=== PATIENT | male | born 1950 | race Caucasian/White ===

== ENCOUNTER 2019-06-15 12:50 | Emergency (ER) | payer MEDICARE ==
[~2019-06-15] VITALS: Ht 182.9 cm; Wt 100.0 kg
[2019-06-15 13:11] VITALS: BP 107/71
[2019-06-15] MEDS ORDERED: IV NORMAL SALINE 1,000ML 1,000 ML IV ONE (13:15)
--- NOTE | 2019-06-15 13:29 | EKG ---
[address] [address] Test Date: 2019-06-15 Test Time: 13:22:51 Pat Name: SURI CR Department: Room: Gender: M Manager Family: : 1950 Requested By: DAY AUSTIN Order Number: [id number] Reading MD: Measurements Intervals [place] Rate: 48 P: 37 NV: 150 QRS: 5 QRSD: 90 T: 24 QT: 484 QTc: 436 Interpretive Statements SINUS BRADYCARDIA OTHERWISE NORMAL ECG RI6.01 No previous ECG available for comparison
--- NOTE | 2019-06-15 13:43 | PHYS DOC ---
Past History Past Medical History: No Pertinent History Past Surgical History: No Surgical History Alcohol Use: None Adult General Chief Complaint Chief Complaint: DIZZY/LIGHT HEADED HPI HPI 68-year-old male presents with dizziness and decreased exercise tolerance. The patient tells me that he walks 10 feet across the room, he starts to get dizzy. He describes this as a lightheaded feeling. If he lies down flat, the symptoms resolved. He sometimes gets the symptoms when he goes from lying to sitting. The patient is on 150 mg of metoprolol daily as well as Cardizem. He states these are for his heart arrhythmia. He is not sure if it's atrial fibrillation. He has also been on an antibiotic for a puncture wound to his left foot. He states that he is now done with the antibiotics. He is not sure what antibiotic it was. His foot has healed. Patient denies any other medication changes. He has been drinking lots of fluid, but had decreased appetite tolerance due to strange taste in his mouth. He denies fever or chills. Has had a cough for the last 2 weeks, with increased frequency last 4 days. He denies chest pain or diaphoresis. Review of Systems Review of Systems Constitutional: Denies fever or chills [] Eyes: Denies change in visual acuity, redness, or eye pain [] HENT: Denies nasal congestion or sore throat [] Respiratory: Cough without shortness of breath [] Cardiovascular: No additional information not addressed in HPI [] GI: Denies abdominal pain, nausea, vomiting, bloody stools or diarrhea [] : Denies dysuria or hematuria [] Musculoskeletal: Denies back pain or joint pain [] Integument: Denies rash or skin lesions [] Neurologic: Dizziness. Denies headache, focal weakness or sensory changes [] Endocrine: Denies polyuria or polydipsia [] All other systems were reviewed and found to be within normal limits, except as documented in this note. Current Medications Current Medications Current Medications Medications (Trade) Dose Ordered Sig/Scot Start Time Stop Time Status Last Admin Dose Admin Sodium Chloride 1,000 ml @ 1,000 mls/hr 1X ONCE 06/15/19 13:15 06/15/19 14:14 UNV 06/15/19 13:32 1,000 MLS/HR Allergies Allergies Allergies Coded Allergies Type Severity Reaction Last Updated Verified Sulfa (Sulfonamide Antibiotics) Allergy Unknown 06/15/19 Yes Physical Exam Physical Exam Constitutional: Well developed, well nourished, no acute distress, non-toxic appearance. [] HENT: Normocephalic, atraumatic, bilateral external ears normal, oropharynx moist, no oral exudates, nose normal. [] Eyes: PERRLA, EOMI, conjunctiva normal, no discharge. [] Neck: Normal range of motion, no tenderness, supple, no stridor. [] Cardiovascular: Heart rate 51, regular rhythm, no murmur [] Lungs & Thorax: Bilateral breath sounds clear to auscultation [] Abdomen: Bowel sounds normal, soft, no tenderness, no masses, no pulsatile masses. [] Skin: Warm, dry, no erythema, no rash. [] Back: No tenderness, no CVA tenderness. [] Extremities: No tenderness, no cyanosis, no clubbing, ROM intact, no edema. [] Neurologic: Alert and oriented X 3, normal motor function, normal sensory function, no focal deficits noted. [] Psychologic: Affect normal, judgement normal, mood normal. [] Current Patient Data Vital Signs Vital Signs Date Time Temp Pulse Resp B/P (MAP) Pulse Ox O2 Delivery O2 Flow Rate FiO2 06/15/19 13:11 98.4 50 16 107/71 (83) 98 Room Air EKG EKG Sinus bradycardia, rate 48, normal axis, no ST elevations or depressions.[] Radiology/Procedures Radiology/Procedures [] Impressions: CHEST PA LATERAL History: Shortness of breath, dizziness. TECHNIQUE: Routine multiplanar sequences are obtained. FINDINGS: No prior study for comparison. Cardiomediastinal silhouette is nonenlarged. No evidence of pneumothorax. No evidence of pleural effusion. No evidence of infiltrate. Bones appear intact. Multilevel degenerative spurring. IMPRESSION: No evidence of consolidating infiltrate. Electronically signed by: Jarad Guzman MD (06/15/2019 2:00 PM) [facility] DICTATED AND SIGNED BY: JARAD GUZMAN MD DATE: 06/15/19 1400 CC: DAY AUSTIN DO; PCP,NO ~ Course & Med Decision Making Course & Med Decision Making Pertinent Labs and Imaging studies reviewed. (See chart for details) Patient's EKG shows a low heart rate of 48-52. He has stayed in this range while in the emergency room. He takes all his medications once a day at the same time. He took them this morning. The patient's labs are unremarkable. Urinalysis is suggestive of UTI. I will treat him with Rocephin in the ED and Keflex at home. The patient didn't tell me that he took full doses of his medications only about 6 hours apart. He took a dose at midnight and then again at 6 AM. This is highly likely the source of his dizziness today. I do wonder if his 150 mg of metoprolol is too much. He will try to only take the 100 mg dose daily and establish with a new primary care physician. The patient recently moved here from out of town. He is stable for discharge at this time. [] Dragon Disclaimer Dragon Disclaimer This electronic medical record was generated, in whole or in part, using a voice recognition dictation system. Departure Departure: Impression: Primary Impression: Dizziness Additional Impressions: Bradycardia UTI (urinary tract infection) Disposition: HOME, SELF-CARE Condition: IMPROVED Referrals: PCP,NO (PCP) Patient Instructions: Bradycardia-Brief, Dizziness, Jily-ra-Mtqy, Urinary Tract Infection, Bgae-rv-Hoxy Scripts Cephalexin (KEFLEX) 500 Mg Capsule 1 CAP PO TID for UTI for 7 Days, #21 CAP 0 Refills Prov: DAY AUSTIN DO 06/15/19 Problem Qualifiers Additional Impressions: UTI (urinary tract infection) Urinary tract infection type: acute cystitis Hematuria presence: with hematuria Qualified Codes: N30.01 - Acute cystitis with hematuria DAY AUSTIN DO Jun 15, 2019 13:43
[2019-06-15 14:00] LABS: CALCIUM 8.3 mg/dL (8.5-10.1); GFR 73.9; POTASSIUM 3.6 mmol/L (3.5-5.1)
--- NOTE | 2019-06-15 14:03 | RAD ---
CHEST PA LATERAL History: Shortness of breath, dizziness. TECHNIQUE: Routine multiplanar sequences are obtained. FINDINGS: No prior study for comparison. Cardiomediastinal silhouette is nonenlarged. No evidence of pneumothorax. No evidence of pleural effusion. No evidence of infiltrate. Bones appear intact. Multilevel degenerative spurring. IMPRESSION: No evidence of consolidating infiltrate. Electronically signed by: Jarad Guzman MD (06/15/2019 2:00 PM) [facility]
[2019-06-15 14:07] LABS: ALBUMIN 3.2 g/dL (3.4-5.0); ALBUMIN/GLOBULIN RATIO 0.7 (1.0-1.7); TOTAL BILIRUBIN 2.1 mg/dL (0.2-1.0); TOTAL PROTEIN 7.9 g/dL (6.4-8.2)
[2019-06-15 14:16] LABS: BASO % 0 % (0-3); EOS % 0 % (0-3); HEMATOCRIT 30.3 % (39.0-53.0); HEMOGLOBIN 10.2 g/dL (13.0-17.5); LYMPH # 1.6 x10^3/uL (1.0-4.8); LYMPH % 39 % (24-48); MEAN CORPUSCULAR HEMOGLOBIN 36 pg (25-35); MEAN CORPUSCULAR HGB CONC 34 g/dL (31-37); MEAN CORPUSCULAR VOLUME 109 fL (79-100); MONO # 0.4 x10^3/uL (0.0-1.1); MONO % 11 % (0-9); NEUT % 50 % (31-73); PLATELET COUNT 222 x10^3/uL (140-400); RED BLOOD COUNT 2.79 x10^6/uL (4.30-5.70); RED CELL DISTRIBUTION WIDTH 23.5 % (11.5-14.5)
[2019-06-15 15:27] LABS: BILIRUBIN,URINE LARGE (NEG); CLARITY,URINE HAZY; COLOR,URINE AMBER; GLUCOSE,URINE NEG (NEG)
[2019-06-15 15:28] LABS: AMORPHOUS SEDIMENT,UR PRESENT /HPF; BACTERIA,URINE FEW /HPF (0-FEW); HYALINE CASTS, URINE FEW /HPF; NITRITE,URINE POS (NEG); RBC,URINE RARE /HPF (0-2); SQUAMOUS EPITHELIAL CELL,UR OCC /LPF; UROBILINOGEN,URINE >=8.0 mg/dL (0.2 mg/dL); WBC,URINE OCC /HPF (0-4)
[2019-06-15 15:32] LABS: % ATYL 3 % (0-0); % BANDS 1 % (0-9); % EOS 1 % (0-5); % LYMPHS 47 % (24-48); % MONOS 8 % (0-10); % SEGS 40 % (35-66); PLT ESTIMATE ADEQUATE (ADEQUATE)
[2019-06-15 15:33] LABS: ANISOCYTOSIS MOD
[2019-06-15] MEDS ORDERED: CEPH-264 PO (16:00)
[2019-06-15] MEDS ORDERED: IV NORMAL SALINE 50ML 50 ML ONE (16:04)
[2019-06-15] MEDS ORDERED: cefTRIAXone SODIUM 1 GM VIAL ONE (16:04)
== END 2019-06-15 16:26 | disposition home or self-care (01) ==
LOC: ER 12:50
DX: R42 Dizziness and giddiness (principal); R00.1 Bradycardia, unspecified; N39.0 Urinary tract infection, site not specified; Z88.2 Allergy status to sulfonamides
CPT/HCPCS: 36415; 71046; 80053; 81001; 84484; 85007; 85025; 87086; 93005; 96361; 96365; 99285; J0696; J7030

== ENCOUNTER → 2019-07-28 | Outpatient (CLI) | payer MEDICARE ==
[~2019-07-28] MED LIST: CEPH-264 PO
[2019-07-28 16:18] LABS: BASO % 1 % (0-3); EOS # 0.1 x10^3/uL (0.0-0.7); EOS % 1 % (0-3); HEMATOCRIT 34.9 % (39.0-53.0); HEMOGLOBIN 11.9 g/dL (13.0-17.5); LYMPH # 2.3 x10^3/uL (1.0-4.8); LYMPH % 48 % (24-48); MEAN CORPUSCULAR HEMOGLOBIN 40 pg (25-35); MEAN CORPUSCULAR HGB CONC 34 g/dL (31-37); MEAN CORPUSCULAR VOLUME 118 fL (79-100); MONO # 0.2 x10^3/uL (0.0-1.1); MONO % 5 % (0-9); NEUT # 2.2 x10^3uL (1.8-7.7); NEUT % 45 % (31-73); PLATELET COUNT 260 x10^3/uL (140-400); RED BLOOD COUNT 2.95 x10^6/uL (4.30-5.70); WHITE BLOOD COUNT 4.8 x10^3/uL (4.0-11.0)
[2019-07-28 16:33] LABS: BACTERIA,URINE 0 /HPF (0-FEW); BILIRUBIN,URINE NEG (NEG); CLARITY,URINE HAZY; COLOR,URINE YELLOW; GLUCOSE,URINE NEG (NEG); HYALINE CASTS, URINE OCC /HPF; NITRITE,URINE NEG (NEG); RBC,URINE 0 /HPF (0-2); SQUAMOUS EPITHELIAL CELL,UR OCC /LPF; WBC,URINE OCC /HPF (0-4)
[2019-07-28 16:34] LABS: ALBUMIN 3.4 g/dL (3.4-5.0); ALBUMIN/GLOBULIN RATIO 0.7 (1.0-1.7); CALCIUM 8.5 mg/dL (8.5-10.1); CREATININE 0.8 mg/dL (0.7-1.3); GFR 95.6; POTASSIUM 4.3 mmol/L (3.5-5.1)
[2019-07-28 21:46] LABS: PLT ESTIMATE ADEQUATE (ADEQUATE)
[2019-07-28 21:47] LABS: ANISOCYTOSIS SLIGHT
[2019-07-29 06:07] LABS: HEMOGLOBIN A1C 4.9 % (4.8-5.6)
[2019-07-29 17:40] LABS: FREE T4 0.99 ng/dL (0.76-1.46); THYROID STIM HORMONE (TSH) 0.75 uIU/mL (0.358-3.740)
== END ==
LOC: LAB 15:42
PROVIDERS: ATTEND Physician Assistant Medical
DX: I10 Essential (primary) hypertension (principal); R60.9 Edema, unspecified; Z79.899 Other long term (current) drug therapy
CPT/HCPCS: 36415; 80053; 80061; 81001; 83036; 83880; 84439; 84443; 84481; 85025

== ENCOUNTER → 2020-01-19 | Outpatient (CLI) | payer MEDICARE ==
--- NOTE | 2020-01-19 17:31 | RAD ---
EXAM: Left knee, 2 views. HISTORY: Pain after fall. COMPARISON: None. FINDINGS: 2 views of the left knee are obtained. There is no fracture, dislocation or subluxation. There is minimal enthesopathy along the superior patella. There is no joint effusion. IMPRESSION: No acute osseous finding. Electronically signed by: Pia Degroot MD (01/19/2020 5:29 PM) [id number]
== END | disposition home or self-care (01) ==
LOC: RAD 16:02
PROVIDERS: ATTEND Internal Medicine Cardiovascular Disease
DX: M77.8 Other enthesopathies, not elsewhere classified (principal); M25.562 Pain in left knee
CPT/HCPCS: 73560

== ENCOUNTER 2020-12-05 09:27 | Inpatient (IN) | payer MEDICARE ==
[~2020-12-05] VITALS: Ht 182.9 cm; Wt 97.2 kg
[2020-12-05 11:25] LABS: BASO % 1 % (0-3); EOS % 0 % (0-3); HEMATOCRIT 43.6 % (39.0-53.0); HEMOGLOBIN 14.9 g/dL (13.0-17.5); LYMPH # 0.7 x10^3/uL (1.0-4.8); LYMPH % 47 % (24-48); MEAN CORPUSCULAR HEMOGLOBIN 34 pg (25-35); MEAN CORPUSCULAR HGB CONC 34 g/dL (31-37); MEAN CORPUSCULAR VOLUME 99 fL (79-100); MONO # 0.2 x10^3/uL (0.0-1.1); MONO % 14 % (0-9); NEUT # 0.6 x10^3uL (1.8-7.7); NEUT % 39 % (31-73); PLATELET COUNT 116 x10^3/uL (140-400)
[2020-12-05 11:26] LABS: WHITE BLOOD COUNT 1.5 x10^3/uL (4.0-11.0)
[2020-12-05 11:29] LABS: CALCIUM 7.9 mg/dL (8.5-10.1); CREATININE 1.2 mg/dL (0.7-1.3); GFR 59.7; POTASSIUM 4.4 mmol/L (3.5-5.1)
[2020-12-05 11:35] LABS: ALBUMIN 3.5 g/dL (3.4-5.0); TOTAL PROTEIN 6.9 g/dL (6.4-8.2)
--- NOTE | 2020-12-05 11:39 | EKG ---
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
--- NOTE | 2020-12-05 11:48 | RAD ---
XR CHEST 1V History: Reason: COUGH / Spl. Instructions: / History: Comparison: June 15, 2019 Findings: Mild scattered nodular opacities bilaterally most prominent within the left mid and lower lung, sever al are similar compared to prior. No consolidation or pleural effusion. No pneumothorax. Normal heart size. Chronic right-sided rib fractures. Impression: 1. No acute cardiopulmonary process. 2. Scattered nodular opacities bilaterally most prominent within the left mid and lower lung, severa l are similar compared to prior. Findings may relate to calcified nodules although indeterminate. Rec ommend follow-up CT to further evaluate as clinically warranted. Electronically signed by: Vasquez Bobo DO (12/05/2020 11:46 AM) [id number]
[2020-12-05 11:53] LABS: % LYMPHS 57 % (24-48); % METAS 2 % (0-0); % MONOS 8 % (0-10); % SEGS 33 % (35-66); PLT ESTIMATE DECREASED (ADEQUATE)
[2020-12-05] MEDS ORDERED: IV RINGERS SOLUTION,LACTATED 1,000 ML IV ONE (12:30)
--- NOTE | 2020-12-05 12:36 | PHYS DOC ---
Past History Past Medical History: No Pertinent History Past Surgical History: No Surgical History Alcohol Use: None General Adult EDM: Chief Complaint: DIZZY/LIGHT HEADED HPI: HPI: Patient is a 69 year old male without pertinent past medical history who presents with 3 days of increasing lightheadedness, loss of taste/smell, and diarrhea. He is not vaccinated for Covid. He does not know of any Covid contacts. His lightheadedness is solely orthostatic. It is worse when he sits up or stands up but goes away completely when he rests. He denies any vertigo. No headache. He has no cough or shortness of breath. He does not feel that he is safe to return home in his current state Review of Systems: Review of Systems: Constitutional: Denies fever or chills Eyes: Denies change in visual acuity HENT: Loss of taste/smell. Denies nasal congestion or sore throat Respiratory: Denies cough or shortness of breath Cardiovascular: Denies chest pain or edema GI: Diarrhea. Denies abdominal pain, nausea, vomiting, bloody stools or diarrhea : Denies dysuria Musculoskeletal: Denies back pain or joint pain Integument: Denies rash Neurologic: Lightheadedness. Denies headache, focal weakness or sensory changes Endocrine: Denies polyuria or polydipsia Lymphatic: Denies swollen glands Psychiatric: Denies depression or anxiety Allergies: Allergies: Allergies Coded Allergies Type Severity Reaction Last Updated Verified Sulfa (Sulfonamide Antibiotics) Allergy Unknown 06/15/19 Yes Physical Exam: PE: Constitutional: Well developed, well nourished, no acute distress, non-toxic appearance. [] HENT: Normocephalic, atraumatic, bilateral external ears normal, oropharynx moist, no oral exudates, nose normal. [] Eyes: PERRLA, EOMI, conjunctiva normal, no discharge. [] Neck: Normal range of motion, no tenderness, supple, no stridor. [] Cardiovascular:Heart rate regular rhythm, no murmur [] Lungs & Thorax: Bilateral breath sounds clear to auscultation [] Abdomen: Bowel sounds normal, soft, no tenderness, no masses, no pulsatile masses. [] Skin: Warm, dry, no erythema, no rash. [] Back: No tenderness, no CVA tenderness. [] Extremities: No tenderness, no cyanosis, no clubbing, ROM intact, no edema. [] Neurologic: Alert and oriented X 3, normal motor function, normal sensory function, no focal deficits noted. Appears slightly unsteady when walking. [] Psychologic: Affect normal, judgement normal, mood normal. [] Current Patient Data: Labs: Laboratory Tests Test 12/05/20 11:03 White Blood Count 1.5 x10^3/uL (4.0-11.0) *L Red Blood Count 4.40 x10^6/uL (4.30-5.70) Hemoglobin 14.9 g/dL (13.0-17.5) Hematocrit 43.6 % (39.0-53.0) Mean Corpuscular Volume 99 fL (79-100) Mean Corpuscular Hemoglobin 34 pg (25-35) Mean Corpuscular Hemoglobin Concent 34 g/dL (31-37) Red Cell Distribution Width 18.0 % (11.5-14.5) H Platelet Count 116 x10^3/uL (140-400) L Neutrophils (%) (Auto) 39 % (31-73) Lymphocytes (%) (Auto) 47 % (24-48) Monocytes (%) (Auto) 14 % (0-9) H Eosinophils (%) (Auto) 0 % (0-3) Basophils (%) (Auto) 1 % (0-3) Neutrophils # (Auto) 0.6 x10^3uL (1.8-7.7) L Lymphocytes # (Auto) 0.7 x10^3/uL (1.0-4.8) L Monocytes # (Auto) 0.2 x10^3/uL (0.0-1.1) Eosinophils # (Auto) 0.0 x10^3/uL (0.0-0.7) Basophils # (Auto) 0.0 x10^3/uL (0.0-0.2) Segmented Neutrophils % 33 % (35-66) L Lymphocytes % 57 % (24-48) H Monocytes % 8 % (0-10) Metamyelocytes % 2 % (0-0) H Platelet Estimate Decreased (ADEQUATE) Sodium Level 137 mmol/L (136-145) Potassium Level 4.4 mmol/L (3.5-5.1) Chloride Level 100 mmol/L (98-107) Carbon Dioxide Level 28 mmol/L (21-32) Anion Gap 9 (6-14) Blood Urea Nitrogen 21 mg/dL (8-26) Creatinine 1.2 mg/dL (0.7-1.3) Estimated GFR (Cockcroft-Gault) 59.7 BUN/Creatinine Ratio 18 (6-20) Glucose Level 122 mg/dL (70-99) H Calcium Level 7.9 mg/dL (8.5-10.1) L Total Bilirubin 1.0 mg/dL (0.2-1.0) Aspartate Amino Transferase (AST) 31 U/L (15-37) Alanine Aminotransferase (ALT) 27 U/L (16-63) Alkaline Phosphatase 75 U/L (46-116) Total Protein 6.9 g/dL (6.4-8.2) Albumin 3.5 g/dL (3.4-5.0) Albumin/Globulin Ratio 1.0 (1.0-1.7) Vital Signs: Vital Signs Date Time Temp Pulse Resp B/P (MAP) Pulse Ox O2 Delivery O2 Flow Rate FiO2 12/05/20 10:32 110 18 101/70 (80) 99 Room Air 12/05/20 09:58 98.1 EKG: EKG: [] Sinus rhythm. Left axis deviation. Prolonged QT 492. No acute ischemic changes. Radiology/Procedures: Radiology/Procedures: CXR without acute process. [] Heart Score: C/O Chest Pain: N/A Risk Factors: Risk Factors: DM, Current or recent (<one month) smoker, HTN, HLP, family history of CAD, obesity. Risk Scores: Score 0 - 3: 2.5% MACE over next 6 weeks - Discharge Home Score 4 - 6: 20.3% MACE over next 6 weeks - Admit for Clinical Observation Score 7 - 10: 72.7% MACE over next 6 weeks - Early Invasive Strategies Course & Med Decision Making: Course & Med Decision Making Pertinent Labs and Imaging studies reviewed. (See chart for details) Patient is a 69-year-old gentleman without pertinent past medical history who presents with 3 days of orthostatic dizziness, loss of taste/smell, and diarrhea. His orthostatic lightheadedness is limiting his safety at home. Does not feel that he is able to ambulate safely independently. On arrival is afebrile, hemodynamically stable. EKG without acute ischemic changes or evidence of arrhythmia. He has not been vaccinated for Covid, and given his loss of taste/smell was made PUI. He does not know of any Covid contacts. His CMP was largely unremarkable, his CBC showed a leukopenia and thrombocytopenia. Concern for viremia. Given his leukopenia I did discuss HIV risk factors and could not identify any. He does not appear to be safe to return home at this time. Will be admitted to our hospitalist. IV fluids given for dehydration. [id number] Dragon Disclaimer: Sharron Disclaimer: This electronic medical record was generated, in whole or in part, using a voice recognition dictation system. Departure Departure: Impression: Primary Impression: Dehydration Disposition: ADMITTED INPATIENT Admitting Physician: Mack Swift Condition: STABLE Referrals: SAMANTHA JAUREGUI (PCP) KEE RANDHAWA MD Dec 05, 2020 12:36
--- NOTE | 2020-12-05 15:02 | HP ---
ADMIT DATE: 12/05/2020 ATTENDING PHYSICIAN: Dr. Swift. CHIEF COMPLAINT: Dizziness. HISTORY OF PRESENT ILLNESS: The patient is a 69-year-old gentleman with viremia. He has had a 3-day history of increasing lightheadedness, loss of taste, smell and diarrhea. He had some gastrointestinal losses. He has dry membranes. Clinically, he appears dehydrated. His lightheadedness is orthostatic. It gets worse when he rises. He is not on any blood pressure meds or diuretics. In the ED, the workup showed a normal chest x-ray. He has not had his COVID vaccine. His white count is diminished of the leukopenia. PAST MEDICAL HISTORY: Not remarkable for any hypertension or heart disease. MEDICATIONS: He is not on any prescription meds. ALLERGIES: HE HAS ALLERGIES TO SULFA DRUGS, WHICH CAUSES RASH. SOCIAL HISTORY: He is a nonsmoker, nondrinker. FAMILY HISTORY: Mom of complications of heart disease. Father of emphysema at age 68. He is retired. He is independent. He has not had any recent travel. However, daughter and daughter's boyfriend has recently been diagnosed with COVID infection. REVIEW OF SYSTEMS: Significant for the diarrhea, loose stools. No fevers, chills, chest pain . All other systems reviewed and noted to be negative. PHYSICAL EXAMINATION: GENERAL: When I saw him, this is a pleasant middle-aged gentleman. INITIAL VITAL SIGNS: Showed a blood pressure of 144/85, pulse is 96 and regular. He is afebrile. Oxygen saturation 99% on room air. HEENT: Head is without trauma. Pupils are reactive. Sclerae nonicteric. Oropharynx is clear. NECK: Supple, no bruits identified. LUNGS: Clear to auscultation. CARDIOVASCULAR: Showed regular heart tones. No gallops. ABDOMEN: Soft. EXTREMITIES: Without edema. NEUROLOGIC: Focally intact. Speech is fluent. SKIN: Warm and dry. Mucous membranes are dry. PERTINENT LABORATORY STUDIES: Hemoglobin is 14.9 g/dL, white count 1500. Electrolytes, creatinine and BUN normal. Nonfasting blood sugar 122. Chest x-ray showed no acute opacities, some scattered nodular opacities in the bases, which may be old nodules. ASSESSMENT: 1. This 69-year-old gentleman has viremia. 2. Dehydration. 3. Leukopenia. 4. COVID-19 person under investigation. PLAN: 1. Admit to the inpatient unit. 2. IV hydration. 3. Await coronavirus swab. 4. Diet as tolerated. 5. No home meds at this time, I do not believe antibiotics are indicated. ELIZABETH/ANGELIQUE/CATHERINE DR: ELIZABETH/kali TID: [id number] CC: CASEY AHN
[2020-12-05 18:09] VITALS: BP 125/94
[2020-12-05 23:05] VITALS: BP 118/95
[2020-12-06 05:27] VITALS: BP 123/84
[2020-12-06 10:33] LABS: BASO % 1 % (0-3); EOS % 0 % (0-3); HEMATOCRIT 41.6 % (39.0-53.0); HEMOGLOBIN 14.2 g/dL (13.0-17.5); LYMPH # 0.8 x10^3/uL (1.0-4.8); LYMPH % 56 % (24-48); MEAN CORPUSCULAR HEMOGLOBIN 34 pg (25-35); MEAN CORPUSCULAR HGB CONC 34 g/dL (31-37); MEAN CORPUSCULAR VOLUME 99 fL (79-100); MONO # 0.2 x10^3/uL (0.0-1.1); MONO % 14 % (0-9); NEUT # 0.4 x10^3uL (1.8-7.7); NEUT % 30 % (31-73); PLATELET COUNT 83 x10^3/uL (140-400); RED BLOOD COUNT 4.22 x10^6/uL (4.30-5.70); RED CELL DISTRIBUTION WIDTH 17.4 % (11.5-14.5)
[2020-12-06 10:34] LABS: WHITE BLOOD COUNT 1.3 x10^3/uL (4.0-11.0)
[2020-12-06] MEDS: ENOXAPARIN 30 MG/0.3 ML SYRINGE. SQ SCH (11:00)
[2020-12-06 12:04] VITALS: BP 130/83
[2020-12-06 15:40] VITALS: BP 125/95
[2020-12-06] MEDS: BENZONATATE 100 MG CAPSULE. PO SCH ×2 (19:00→20:48)
[2020-12-06 21:00] VITALS: BP 119/91
--- NOTE | 2020-12-06 21:28 | PN ---
DATE: 12/06/2020 ATTENDING PHYSICIAN: Dr. Swift. SUBJECTIVE: Still weak. He has no new complaints. OBJECTIVE FINDINGS: VITAL SIGNS: Blood pressure this morning is 118/95, pulse is 100 and regular, temperature 99.6 degrees Fahrenheit, oxygen sat 95% on room air. HEENT: Head is without trauma. Pupils are reactive. Sclerae nonicteric. Oropharynx is clear. NECK: Supple, no bruits. LUNGS: Good breath sounds. No rhonchi. CARDIOVASCULAR: Showed regular heart tones. No gallops. ABDOMEN: Soft. EXTREMITIES: Without edema. NEUROLOGIC FINDINGS: Focally intact. LABORATORY DATA: Serology was indeed positive for coronavirus. His white count on admission was 1500. ASSESSMENT: 1. A 69-year-old gentleman with COVID-19 coronavirus viremia. No respiratory symptoms at this time. 2. Mild dehydration. 3. Leukopenia. PLAN: 1. Follow up CBC. 2. Continue IV hydration. 3. Empiric Lovenox. 4. I do not see any necessity for steroids at this time. MARYAN DR: Marya TID: [id number] CC: CASEY AHN
[2020-12-07 06:10] VITALS: BP 99/71
[2020-12-07 08:39] LABS: BASO % 0 % (0-3); EOS % 0 % (0-3); HEMATOCRIT 45.8 % (39.0-53.0); HEMOGLOBIN 15.7 g/dL (13.0-17.5); LYMPH # 1.1 x10^3/uL (1.0-4.8); LYMPH % 62 % (24-48); MEAN CORPUSCULAR HEMOGLOBIN 34 pg (25-35); MEAN CORPUSCULAR HGB CONC 34 g/dL (31-37); MEAN CORPUSCULAR VOLUME 98 fL (79-100); MONO # 0.2 x10^3/uL (0.0-1.1); MONO % 13 % (0-9); NEUT # 0.4 x10^3uL (1.8-7.7); NEUT % 25 % (31-73); PLATELET COUNT 74 x10^3/uL (140-400); RED BLOOD COUNT 4.67 x10^6/uL (4.30-5.70); RED CELL DISTRIBUTION WIDTH 17.5 % (11.5-14.5)
[2020-12-07 08:51] LABS: ALBUMIN 3.2 g/dL (3.4-5.0); ALBUMIN/GLOBULIN RATIO 0.8 (1.0-1.7); CALCIUM 7.6 mg/dL (8.5-10.1); CREATININE 1.1 mg/dL (0.7-1.3); POTASSIUM 3.8 mmol/L (3.5-5.1)
[2020-12-07 08:53] LABS: WHITE BLOOD COUNT 1.8 x10^3/uL (4.0-11.0)
[2020-12-07] MEDS: BENZONATATE 100 MG CAPSULE. PO SCH ×3 (10:01→19:15)
[2020-12-07] MEDS: ENOXAPARIN 30 MG/0.3 ML SYRINGE. SQ SCH (10:12)
[2020-12-07 10:31] VITALS: BP 116/73
[2020-12-07] MEDS ORDERED: DEXAMETHASONE SOD PHOS 10 MG/ML VIAL. IV ONE (14:15)
[2020-12-07] MEDS ORDERED: DEXTROSE 50% 25 GM / 50ML DISP.SYRIN. IV PRN (14:15)
--- NOTE | 2020-12-07 14:56 | EKG ---
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
[2020-12-07] MEDS: IV NORMAL SALINE 1,000ML 1,000 ML IV SCH (15:43)
[2020-12-07 16:20] VITALS: BP 134/98
[2020-12-07] MEDS ORDERED: METOPROLOL TART IMMED RELEASE 25 MG TABLET. PO ONE (16:45)
[2020-12-07] MEDS ORDERED: DIGOXIN IV 500 MCG/2 ML AMPUL. IV ONE (16:45)
[2020-12-07] MEDS: ACETAMINOPHEN 325 MG TABLET PO PRN (16:50)
[2020-12-07] MEDS: INSULIN LISPRO 300 UNITS/3 ML VIAL. SQ SCH (17:00)
[2020-12-07] MEDS: METOPROLOL TART IMMED RELEASE 25 MG TABLET. PO SCH ×4 (19:14→20:04)
[2020-12-07 19:30] VITALS: BP 128/80
[2020-12-07 22:00] VITALS: BP 131/76
--- NOTE | 2020-12-07 23:26 | PN ---
DATE: 12/07/2020 SUBJECTIVE: The patient is a 69-year-old male patient who was admitted with a 3-day history of increasing lightheadedness, loss of taste, smell and diarrhea. He has dry membranes. Clinically, he appears to be dehydrated. He has also orthostatic hypotension that gets worse when he stands up. He was found to be positive for coronavirus; however, he has leukopenia and thrombocytopenia. In fact, his white cell count is slightly up today at 1800. However, the platelet count is trending down to 74,000. He continued to complain of loss of taste and smell and the nursing staff stated hat he still continued to have loose bowel movement. Denied any chest pain, shortness of breath, cough, phlegm or hemoptysis. PHYSICAL EXAMINATION: GENERAL: When I examined him today, he looked well and was clearly in no apparent respiratory distress. No pallor, jaundice, cyanosis or thyromegaly. No jugular venous distention. No lower limb edema. VITAL SIGNS: Her heart rate was irregularly irregular and varies between 80-130, his blood pressure is 116/73, temperature was 96.6, respiratory rate 20, and oxygen saturation was 96% on room air. HEAD, EYES, EARS, NOSE AND THROAT: Showed he is normocephalic, atraumatic. NECK: Supple. HEART: Showed normal first and second heart sounds, no gallop or murmur. CHEST: Clear to auscultation, no crepitation or rhonchi. ABDOMEN: Distended, soft, nontender. NEUROLOGIC: He is somewhat slow to respond, but otherwise all his cranial nerves intact. He moves extremities without difficulty. His intake was 850, no output was recorded. LABORATORY DATA: As of this morning, his white cell count was 1800, hemoglobin 15.7, hematocrit 45, MCV 98 and platelet count of 74,000 with a manual differential showed 25% polymorphs, 62% lymphocytes and 13% monocytes. His chemistry showed a serum sodium 136, potassium 3.8, chloride 100, bicarbonate 29, anion gap of 7, BUN of 12, creatinine 1.1. Estimated GFR was 66 mL per minute. His glucose 116, calcium was 7.6. Total bilirubin, AST, ALT, alkaline phosphatase were normal. Total protein 7, albumin 3.2. ASSESSMENT: 1. COVID-19 infection. 2. Dehydration and mild dizziness. 3. Leukopenia. 4. Thrombocytopenia. 5. Lymphocytosis. PLAN: The plan is to start him on IV fluids. I am little bit concerned about his thrombocytopenia and therefore, I will discontinue the Lovenox, start him on SCDs for DVT prophylaxis and start him also on dexamethasone. His blood sugar was slightly high. We will do also Accu-Cheks before meals and bedtime. CORINA DR: Evelyn TID: [id number]
[2020-12-08] MEDS: IV NORMAL SALINE 1,000ML 1,000 ML IV SCH ×3 (00:15→20:15)
[2020-12-08 07:00] VITALS: BP 131/76
[2020-12-08 07:30] LABS: ALBUMIN 2.8 g/dL (3.4-5.0); ALBUMIN/GLOBULIN RATIO 0.8 (1.0-1.7); C REACTIVE PROTEIN 10.7 mg/L (0-3.3); CALCIUM 7.7 mg/dL (8.5-10.1); CREATININE 0.9 mg/dL (0.7-1.3); GFR 83.2; POTASSIUM 4.2 mmol/L (3.5-5.1); TOTAL BILIRUBIN 0.7 mg/dL (0.2-1.0); TOTAL PROTEIN 6.4 g/dL (6.4-8.2)
[2020-12-08] MEDS: INSULIN LISPRO 300 UNITS/3 ML VIAL. SQ SCH ×3 (08:00→17:00)
--- NOTE | 2020-12-08 08:36 | PDOC2 ---
CARDIAC CONSULT DATE OF CONSULT DOS: DATE: 12/08/20 TIME: 08:26 REASON FOR CONSULT Reason for Consult irregular heart beat REFERRING PHYSICIAN Referring Physician Dr. Krueger SOURCE Source: Chart review, Patient HPI History of Present Illness This is a 69 yo male who presented secondary to dizziness, loss of taste/smell, and diarrhea. Was noted to be COVID positive. Was noted in AFIB with RVR, which prompted this consult. Was started on metoprolol for rate control. No chest pain, palpitations. Has remains on RA. PAST MEDICAL HISTORY Cardiovascular: No pertinent hx Pulmonary: No pertinent hx GI: No pertinent hx Heme/Onc: No pertinent hx PAST SURGICAL HISTORY Past Surgical History: No pertinent history FAMILY HISTORY Family History: Heart Disease SOCIAL HISTORY Smoke: No ALCOHOL: none Drugs: None Lives: Alone CURRENT MEDICATIONS Current Medications Current Medications Lactated Ringer's 1,000 ml @ 75 mls/hr 1X ONCE IV Last administered on 12/05/20at 13:24; Start 12/05/20 at 12:30; Stop 12/06/20 at 01:49; Status DC Enoxaparin Sodium (Lovenox 30mg Syringe) 30 mg Q24H SQ Last administered on 12/07/20at 10:12; Start 12/06/20 at 11:00; Stop 12/07/20 at 14:10; Status DC Benzonatate (Tessalon Perle) 100 mg [id number] PO Last administered on 12/07/20at 19:15; Start 12/06/20 at 19:00 Sodium Chloride 1,000 ml @ 100 mls/hr Q10H IV Last administered on 12/08/20at 00:15; Start 12/07/20 at 14:15 Dexamethasone Sodium Phosphate (Decadron) 10 mg 1X ONCE IV Last administered on 12/07/20at 15:42; Start 12/07/20 at 14:15; Stop 12/07/20 at 14:17; Status DC Dexamethasone Sodium Phosphate (Decadron) 6 mg DAILY IVP ; Start 12/08/20 at 09:00 Insulin Human Lispro (HumaLOG) 0-5 UNITS TIDWMEALS SQ ; Start 12/07/20 at 17:00 Dextrose (Dextrose 50%-Water Syringe) 12.5 gm PRN Q15MIN PRN IV SEE COMMENTS; Start 12/07/20 at 14:15 Acetaminophen (Tylenol) 325 mg PRN Q6HRS PRN PO MILD PAIN / TEMP > 100.3'F Last administered on 12/07/20at 16:50; Start 12/07/20 at 16:45 Digoxin (Lanoxin) 500 mcg 1X ONCE IV Last administered on 12/07/20at 16:52; Start 12/07/20 at 16:45; Stop 12/07/20 at 16:46; Status DC Metoprolol Tartrate (Lopressor) 25 mg 1X ONCE PO Last administered on 12/07/20at 16:50; Start 12/07/20 at 16:45; Stop 12/07/20 at 16:46; Status DC Metoprolol Tartrate (Lopressor) 25 mg BID PO Last administered on 12/07/20at 20:04; Start 12/07/20 at 21:00 Active Scripts Active Keflex (Cephalexin) 500 Mg Capsule 1 Cap PO TID 7 Days ALLERGIES Allergies: Coded Allergies: Sulfa (Sulfonamide Antibiotics) (Verified Allergy, Unknown, 06/15/19) ROS Review of Systems 14 point ROS conducted with pertinent positives noted above in HPI PHYSICAL EXAM General: Alert, Oriented X3, Cooperative, No acute distress HEENT: Atraumatic Lungs: Other (RA) Heart: Other (tele AFIB, rate controlled ) Extremities: No edema Skin: No breakdown Neuro: Normal speech Psych/Mental Status: Mental status NL, Mood NL MUSCULOSKELETAL: Osteoarthritic changes both hands VITALS Vital Signs Vital Signs Date Time Temp Pulse Resp B/P (MAP) Pulse Ox O2 Delivery O2 Flow Rate FiO2 12/08/20 07:00 98.4 85 18 131/76 (94) 95 Room Air LABS LABS Laboratory Tests Test 12/06/20 10:20 12/07/20 07:59 12/07/20 08:27 12/07/20 17:19 White Blood Count 1.3 x10^3/uL (4.0-11.0) 1.8 x10^3/uL (4.0-11.0) Red Blood Count 4.22 x10^6/uL (4.30-5.70) 4.67 x10^6/uL (4.30-5.70) Hemoglobin 14.2 g/dL (13.0-17.5) 15.7 g/dL (13.0-17.5) Hematocrit 41.6 % (39.0-53.0) 45.8 % (39.0-53.0) Mean Corpuscular Volume 99 fL (79-100) 98 fL (79-100) Mean Corpuscular Hemoglobin 34 pg (25-35) 34 pg (25-35) Mean Corpuscular Hemoglobin Concent 34 g/dL (31-37) 34 g/dL (31-37) Red Cell Distribution Width 17.4 % (11.5-14.5) 17.5 % (11.5-14.5) Platelet Count 83 x10^3/uL (140-400) 74 x10^3/uL (140-400) Neutrophils (%) (Auto) 30 % (31-73) 25 % (31-73) Lymphocytes (%) (Auto) 56 % (24-48) 62 % (24-48) Monocytes (%) (Auto) 14 % (0-9) 13 % (0-9) Eosinophils (%) (Auto) 0 % (0-3) 0 % (0-3) Basophils (%) (Auto) 1 % (0-3) 0 % (0-3) Neutrophils # (Auto) 0.4 x10^3uL (1.8-7.7) 0.4 x10^3uL (1.8-7.7) Lymphocytes # (Auto) 0.8 x10^3/uL (1.0-4.8) 1.1 x10^3/uL (1.0-4.8) Monocytes # (Auto) 0.2 x10^3/uL (0.0-1.1) 0.2 x10^3/uL (0.0-1.1) Eosinophils # (Auto) 0.0 x10^3/uL (0.0-0.7) 0.0 x10^3/uL (0.0-0.7) Basophils # (Auto) 0.0 x10^3/uL (0.0-0.2) 0.0 x10^3/uL (0.0-0.2) Glucose (Fingerstick) 223 mg/dL (70-99) 109 mg/dL (70-99) Sodium Level 136 mmol/L (136-145) Potassium Level 3.8 mmol/L (3.5-5.1) Chloride Level 100 mmol/L (98-107) Carbon Dioxide Level 29 mmol/L (21-32) Anion Gap 7 (6-14) Blood Urea Nitrogen 12 mg/dL (8-26) Creatinine 1.1 mg/dL (0.7-1.3) Estimated GFR (Cockcroft-Gault) 66.0 BUN/Creatinine Ratio 11 (6-20) Glucose Level 116 mg/dL (70-99) Calcium Level 7.6 mg/dL (8.5-10.1) Total Bilirubin 1.0 mg/dL (0.2-1.0) Aspartate Amino Transf (AST/SGOT) 31 U/L (15-37) Alanine Aminotransferase (ALT/SGPT) 24 U/L (16-63) Alkaline Phosphatase 75 U/L (46-116) Total Protein 7.0 g/dL (6.4-8.2) Albumin 3.2 g/dL (3.4-5.0) Albumin/Globulin Ratio 0.8 (1.0-1.7) Test 12/07/20 20:31 12/08/20 06:20 Glucose (Fingerstick) 134 mg/dL (70-99) Sodium Level 138 mmol/L (136-145) Potassium Level 4.2 mmol/L (3.5-5.1) Chloride Level 103 mmol/L (98-107) Carbon Dioxide Level 28 mmol/L (21-32) Anion Gap 7 (6-14) Blood Urea Nitrogen 14 mg/dL (8-26) Creatinine 0.9 mg/dL (0.7-1.3) Estimated GFR (Cockcroft-Gault) 83.2 BUN/Creatinine Ratio 16 (6-20) Glucose Level 136 mg/dL (70-99) Calcium Level 7.7 mg/dL (8.5-10.1) Total Bilirubin 0.7 mg/dL (0.2-1.0) Aspartate Amino Transf (AST/SGOT) 26 U/L (15-37) Alanine Aminotransferase (ALT/SGPT) 20 U/L (16-63) Alkaline Phosphatase 67 U/L (46-116) C-Reactive Protein 10.7 mg/L (0-3.3) Total Protein 6.4 g/dL (6.4-8.2) Albumin 2.8 g/dL (3.4-5.0) Albumin/Globulin Ratio 0.8 (1.0-1.7) ECHOCARDIOGRAM Echocardiogram <Conclusion> The left ventricular systolic function is normal and the ejection fraction is within normal range. The Ejection Fraction is 55%. There is normal LV segmental wall motion. DATE: 09/29/19 1425 ASSESSMENT/PLAN Assessment/Plan 1. Dizziness, hypotension, dehydration secondary to GI loss; improved with IVFs 2. COVID+; on RA 3. Leukopenia 4. Thrombocytopenia 5. Fevers 6. PAFIB with RVR; rate now controlled with addition of metoprolol. 7. ILR; device check 08/31 with 15% AFIB burden 8. Hypertension; now adequate Recommendations Continue metoprolol for rate control TSH, lipids Outpatient echo and ischemic evaluation when recovered from COVID No ASA, OAC with thrombocytopenia Ongoing treatment of COVID as per IM Supportive care HARSHIL QUINONEZ APRN Dec 08, 2020 08:36
[2020-12-08 08:38] LABS: BASO % 0 % (0-3); EOS % 0 % (0-3); HEMATOCRIT 46.3 % (39.0-53.0); HEMOGLOBIN 15.8 g/dL (13.0-17.5); LYMPH # 0.4 x10^3/uL (1.0-4.8); LYMPH % 54 % (24-48); MEAN CORPUSCULAR HEMOGLOBIN 34 pg (25-35); MEAN CORPUSCULAR HGB CONC 34 g/dL (31-37); MEAN CORPUSCULAR VOLUME 99 fL (79-100); MONO # 0.1 x10^3/uL (0.0-1.1); MONO % 10 % (0-9); NEUT # 0.3 x10^3uL (1.8-7.7); NEUT % 36 % (31-73); PLATELET COUNT 61 x10^3/uL (140-400); RED CELL DISTRIBUTION WIDTH 17.7 % (11.5-14.5)
[2020-12-08 08:43] LABS: WHITE BLOOD COUNT 0.8 x10^3/uL (4.0-11.0)
[2020-12-08] MEDS ORDERED: REMDESIVIR LOAD in IV NORMAL SALINE 250ML TV IV ONE ×2 (09:30→11:00)
[2020-12-08] MEDS: BENZONATATE 100 MG CAPSULE. PO SCH ×3 (10:20→20:16)
[2020-12-08] MEDS: METOPROLOL TART IMMED RELEASE 25 MG TABLET. PO SCH ×2 (10:21→20:15)
[2020-12-08] MEDS: DEXAMETHASONE SOD PHOS 4 MG/ML VIAL. IVP SCH (10:21)
[2020-12-08 10:45] VITALS: BP 120/96
[2020-12-08] MEDS ORDERED: BISMUTH SUBSALICYLATE 262 MG/15 ML ORAL.SUSP 236ML BOTTLE. PO PRN (13:15)
[2020-12-08 15:42] VITALS: BP 118/88
[2020-12-08 20:07] VITALS: BP 117/80
[2020-12-08 23:28] VITALS: BP 123/76
[2020-12-09 03:25] VITALS: BP 120/84
[2020-12-09] MEDS: IV NORMAL SALINE 1,000ML 1,000 ML IV SCH ×2 (06:12→20:00)
--- NOTE | 2020-12-09 06:37 | PN ---
DATE: 12/08/2020 SUBJECTIVE: The patient is resting, slightly propped up in bed, eating his lunch comfortably. He did complain of headache and requested some Pepto-Bismol for upset stomach. Denied any other complaint. His white cell count has dropped down to 800 from 1.8 yesterday. I did speak with Dr. Marin, and he recommended starting him on remdesivir. PHYSICAL EXAMINATION: GENERAL: When I examined him this afternoon, he looked well and was clearly in no apparent respiratory distress. No pallor, jaundice, cyanosis or thyromegaly. No jugular venous distention. No limb edema. VITAL SIGNS: His heart rate was 94, blood pressure was 120/96, temperature was 98.4, respiratory rate 20 and oxygen saturation was 97%. HEAD, EYES, EARS, NOSE AND THROAT: Normocephalic, atraumatic. NECK: Supple. HEART: Normal first and second heart sounds. No gallop, rub or murmur. CHEST: Clear to auscultation. No crepitation or rhonchi. ABDOMEN: Distended, soft, nontender. NEUROLOGIC: He was slow to respond, but otherwise grossly intact. His intake over the last 24 hours was 2100. Output was 300. LABORATORY DATA: This morning showed a white cell count was 800. His hemoglobin was 16, hematocrit 46, MCV 99 and platelet count 61,000 with manual differential showed 36% polymorphs, 54% lymphocytes, 10% monocytes. His chemistry showed a serum sodium 138, potassium 4.2, chloride 103, bicarbonate 28, anion gap of 7, BUN 14, creatinine 0.9. Estimated GFR was 83 mL per minute. His glucose 136, calcium was 7.7. Total bilirubin, AST, ALT and alkaline phosphatase were normal. C-reactive protein was 7.7 and D-dimer was 1.1. His total protein 6.4, albumin was 2.8. ASSESSMENT: 1. COVID-19 infection. 2. Dehydration and mild dizziness. 3. Leukopenia. 4. Thrombocytopenia. 5. Lymphocytosis. 6. Atrial fibrillation with rapid ventricular response. 7. Hypertension. PLAN: Given the fact that his leukopenia has worsened, I did speak with Dr. Marin who recommended starting him on remdesivir. He is already on dexamethasone. He was also started on metoprolol as well as an insulin sliding scale. I will add Pepto-Bismol and follow his labs closely. VIET/PAULINA/LIVIA DR: Evelyn TID: [id number]
[2020-12-09 06:42] LABS: BASO % 0 % (0-3); EOS % 0 % (0-3); HEMATOCRIT 41.4 % (39.0-53.0); HEMOGLOBIN 14.1 g/dL (13.0-17.5); LYMPH # 0.8 x10^3/uL (1.0-4.8); LYMPH % 31 % (24-48); MEAN CORPUSCULAR HEMOGLOBIN 33 pg (25-35); MEAN CORPUSCULAR HGB CONC 34 g/dL (31-37); MEAN CORPUSCULAR VOLUME 98 fL (79-100); MONO # 0.2 x10^3/uL (0.0-1.1); MONO % 9 % (0-9); NEUT # 1.6 x10^3uL (1.8-7.7); NEUT % 59 % (31-73); PLATELET COUNT 68 x10^3/uL (140-400); RED BLOOD COUNT 4.23 x10^6/uL (4.30-5.70); RED CELL DISTRIBUTION WIDTH 17.1 % (11.5-14.5); WHITE BLOOD COUNT 2.6 x10^3/uL (4.0-11.0)
[2020-12-09 06:48] LABS: CALCIUM 7.2 mg/dL (8.5-10.1); CREATININE 0.8 mg/dL (0.7-1.3); GFR 95.3; POTASSIUM 3.9 mmol/L (3.5-5.1)
[2020-12-09] MEDS: INSULIN LISPRO 300 UNITS/3 ML VIAL. SQ SCH (08:00)
[2020-12-09] MEDS: METOPROLOL TART IMMED RELEASE 25 MG TABLET. PO SCH ×2 (09:15→21:33)
[2020-12-09] MEDS: BENZONATATE 100 MG CAPSULE. PO SCH ×3 (09:15→21:33)
[2020-12-09] MEDS: DEXAMETHASONE SOD PHOS 4 MG/ML VIAL. IVP SCH (09:16)
[2020-12-09] MEDS: REMDESIVIR 100mg in NORMAL SALINE 250ML X 4 DAYS IV SCH (09:17)
[2020-12-09 11:59] VITALS: BP 127/76
[2020-12-09 16:40] VITALS: BP 134/93
[2020-12-09 17:24] LABS: THYROID STIM HORMONE (TSH) 0.155 uIU/mL (0.358-3.740)
[2020-12-09 20:30] VITALS: BP 109/68
[2020-12-09 23:34] VITALS: BP 118/85
--- NOTE | 2020-12-10 01:07 | PN ---
DATE: 12/09/2020 SUBJECTIVE: The patient is resting, slightly propped up in bed, in no apparent respiratory distress. He is awake, alert. On questioning him, he denied any complaint except that he is still a problem with his smell and taste. Nursing staff did not voice any concerns, stated he had an uneventful night. He continued on room air, maintaining his oxygen saturation of 95-96%. when I examined him this afternoon, he looked well and was clearly in no apparent respiratory distress. No pallor, jaundice, cyanosis or thyromegaly. No jugular venous distention. No limb edema. OBJECTIVE: VITAL SIGNS: His heart rate was 81, blood pressure was 127/76, temperature 97.6, respiratory rate was 18 and oxygen saturation was 95% on room air. HEAD, EYES, EARS, NOSE, EYES, NOSE AND THROAT: Normocephalic, atraumatic. NECK: Supple. HEART: Normal first and second heart sounds, no gallop or murmur. CHEST: Clear to auscultation. No crepitation or rhonchi. ABDOMEN: Distended, soft, nontender. NEUROLOGIC: He is slow to respond at times, but all his cranial nerves intact. He moves extremities without difficulty. His intake was 2100, output was 300. LABORATORY DATA: White cell count has risen up to 2600, hemoglobin 14, hematocrit 41, MCV 98 and platelet count of 68,000. His chemistry showed a serum sodium 138, potassium 3.9, chloride 104, bicarbonate 27, anion gap of 7, BUN 14, creatinine 0.8. Estimated GFR was 95 mL per minute. His glucose 120, calcium was 7.2. D-dimer was 1.1. ASSESSMENT: 1. COVID-19 infection. 2. Dehydration and mild dizziness, resolved. 3. Leukopenia, improving. His total white cell count is up to 2600, thrombocytopenia improving is up to 68,000. 4. Lymphocytosis, resolved. In fact, his lymphocytes only represented 31% instead of more than 50%. 5. Atrial fibrillation with rapid ventricular response, rate controlled. 6. Hypertension, well controlled. PLAN: Continue with IV fluids, IV dexamethasone and is severe as well as metoprolol together with insulin sliding scale as needed. VIET/KEYANA DR: Evelyn TID: [id number]
[2020-12-10] MEDS: IV NORMAL SALINE 1,000ML 1,000 ML IV SCH ×3 (02:15→21:10)
[2020-12-10 05:19] VITALS: BP 134/85
[2020-12-10 07:24] LABS: ALBUMIN 2.7 g/dL (3.4-5.0); DIRECT BILIRUBIN 0.2 mg/dL (0.0-0.2); TOTAL BILIRUBIN 0.7 mg/dL (0.2-1.0); TOTAL PROTEIN 6.1 g/dL (6.4-8.2)
[2020-12-10] MEDS: REMDESIVIR 100mg in NORMAL SALINE 250ML X 4 DAYS IV SCH (08:00)
[2020-12-10] MEDS: METOPROLOL TART IMMED RELEASE 25 MG TABLET. PO SCH ×2 (08:01→21:10)
[2020-12-10] MEDS: DEXAMETHASONE SOD PHOS 4 MG/ML VIAL. IVP SCH (08:01)
[2020-12-10] MEDS: BENZONATATE 100 MG CAPSULE. PO SCH ×3 (08:01→21:09)
[2020-12-10 08:30] LABS: BASO % 0 % (0-3); EOS % 0 % (0-3); HEMATOCRIT 42.1 % (39.0-53.0); HEMOGLOBIN 14.3 g/dL (13.0-17.5); LYMPH # 0.8 x10^3/uL (1.0-4.8); LYMPH % 32 % (24-48); MEAN CORPUSCULAR HEMOGLOBIN 34 pg (25-35); MEAN CORPUSCULAR HGB CONC 34 g/dL (31-37); MEAN CORPUSCULAR VOLUME 99 fL (79-100); MONO # 0.3 x10^3/uL (0.0-1.1); MONO % 12 % (0-9); NEUT # 1.5 x10^3uL (1.8-7.7); NEUT % 55 % (31-73); PLATELET COUNT 91 x10^3/uL (140-400); RED BLOOD COUNT 4.24 x10^6/uL (4.30-5.70); RED CELL DISTRIBUTION WIDTH 17.3 % (11.5-14.5); WHITE BLOOD COUNT 2.7 x10^3/uL (4.0-11.0)
[2020-12-10 10:12] VITALS: BP 123/82
[2020-12-10 15:01] VITALS: BP 113/81
[2020-12-10 20:22] VITALS: BP 133/88
[2020-12-10 21:11] LABS: THYROXINE 7.3 ug/dL (4.5-12.0)
--- NOTE | 2020-12-10 22:35 | PN ---
DATE: 12/10/2020 SUBJECTIVE: The patient is resting flat, comfortably in bed, in no apparent respiratory distress. On questioning him, he denied any complaint. Nursing staff did not voice any concern, stated that he had an uneventful night. He has been up and about. Denied any dizziness, lightheadedness or vertigo. PHYSICAL EXAMINATION: GENERAL: When I examined him, there was no pallor, jaundice, cyanosis or thyromegaly. No jugular venous distention. No limb edema. VITAL SIGNS: His heart rate was 63, blood pressure is 123/82, temperature was 98, respiratory rate 20, and oxygen saturation was 96% on room air. The rest of clinical exam stable. His intake was 1460, output was 400. LABORATORY DATA: His lab work this morning showed a white cell count is up to 2700, hemoglobin 14, hematocrit 42, MCV 99 and platelet up to 91,000. His liver enzymes, total bilirubin, AST, ALT, alkaline phosphatase were all within normal range. TSH is also undetectable at 0.155. We did check his free T4. The rest of the results are still pending. The plan is to continue with metoprolol for rate control. Continue with remdesivir and dexamethasone. Continue with IV fluid. ASSESSMENT: 1. COVID-19 infection. 2. Dehydration, mild dizziness, resolved. 3. Leukopenia, improving. His total white cell count is up to 2700. 4. Thrombocytopenia is improving. His platelet count up to 91,000. 5. Lymphocytosis, resolved. 6. Atrial fibrillation, rate controlled. 7. Hypertension, well controlled. PLAN: Continue with IV fluid, IV dexamethasone, IV remdesivir as well as metoprolol. CROINA DR: Evelyn TID: [id number]
[2020-12-10 23:57] VITALS: BP 136/99
[2020-12-11 06:09] VITALS: BP 135/81
[2020-12-11] MEDS: IV NORMAL SALINE 1,000ML 1,000 ML IV SCH ×2 (08:15→18:15)
[2020-12-11] MEDS: REMDESIVIR 100mg in NORMAL SALINE 250ML X 4 DAYS IV SCH (09:17)
[2020-12-11] MEDS: BENZONATATE 100 MG CAPSULE. PO SCH ×3 (09:17→20:31)
[2020-12-11] MEDS: METOPROLOL TART IMMED RELEASE 25 MG TABLET. PO SCH ×2 (09:18→20:31)
[2020-12-11] MEDS: DEXAMETHASONE SOD PHOS 4 MG/ML VIAL. IVP SCH (09:18)
[2020-12-11 12:03] VITALS: BP 141/96
[2020-12-11 16:05] VITALS: BP 151/107
[2020-12-11] MEDS ORDERED: DIGOXIN IV 500 MCG/2 ML AMPUL. IV ONE (18:15)
[2020-12-11] MEDS ORDERED: DIGOXIN IV 500 MCG/2 ML AMPUL. IV PRN (19:30)
[2020-12-11 20:32] VITALS: BP 153/97
--- NOTE | 2020-12-11 23:03 | PN ---
DATE: 12/11/2020 SUBJECTIVE: The patient is resting, slightly propped up in bed, in no apparent respiratory distress. He is awake and alert. He denied any chest pain, shortness of breath, cough or phlegm. Did complain of some constipation. PHYSICAL EXAMINATION: GENERAL: When I examined him, he looked well and was clearly in no apparent respiratory distress. No pallor, jaundice, cyanosis or thyromegaly. No jugular venous distention. No lower limb edema. VITAL SIGNS: His heart rate was 80, blood pressure is 141/96, temperature was 98.1, respiratory rate was 18 and oxygen saturation was 97% on room air. HEAD, EYES, EARS, NOSE, AND THROAT: Normocephalic, atraumatic. NECK: Supple. HEART: Showed normal first and second heart sounds. No gallop, rub or murmur. CHEST: Clear to auscultation. No crepitation or rhonchi. ABDOMEN: Distended, soft, and nontender. NEUROLOGIC: He was slow to respond, but otherwise all his cranial nerves intact. He moves extremities without difficulty, ambulates without assistance or assistive devices. INTAKE AND OUTPUT: His intake was 718. No output was recorded. LABORATORY DATA: No lab work done this morning. His TSH was low at 0.155. However, his free T4 was slightly elevated; however, total T4 and total T3 are within normal range. ASSESSMENT: 1. COVID-19 infection. 2. Dehydration, resolved. 3. Leukopenia, improving. His most recent white cell count is up to 2700. 4. Thrombocytopenia, improving. His most recent platelet count is up to 91,000. 5. Lymphocytosis, resolved. 6. Atrial fibrillation, rate controlled. 7. Hypertension, well controlled. PLAN: To continue with IV dexamethasone, remdesivir as well as metoprolol, probably discharge him home tomorrow. VIET/MATT DR: Evelyn TID: [id number]
[2020-12-11 23:32] VITALS: BP 143/98
[2020-12-11] MEDS: ACETAMINOPHEN 325 MG TABLET PO PRN (23:33)
[2020-12-12] MEDS: IV NORMAL SALINE 1,000ML 1,000 ML IV SCH (04:15)
[2020-12-12 06:07] VITALS: BP 147/93
[2020-12-12 06:21] LABS: HEMATOCRIT 41.6 % (39.0-53.0); HEMOGLOBIN 14.5 g/dL (13.0-17.5); RED BLOOD COUNT 4.26 x10^6/uL (4.30-5.70); RED CELL DISTRIBUTION WIDTH 17.3 % (11.5-14.5); WHITE BLOOD COUNT 2.5 x10^3/uL (4.0-11.0)
[2020-12-12 06:38] LABS: ALBUMIN 2.7 g/dL (3.4-5.0); ALBUMIN/GLOBULIN RATIO 0.9 (1.0-1.7); CALCIUM 7.5 mg/dL (8.5-10.1); CREATININE 0.7 mg/dL (0.7-1.3); GFR 111.2; POTASSIUM 3.3 mmol/L (3.5-5.1); TOTAL BILIRUBIN 1.1 mg/dL (0.2-1.0); TOTAL PROTEIN 5.8 g/dL (6.4-8.2)
[2020-12-12] MEDS: BENZONATATE 100 MG CAPSULE. PO SCH (08:21)
[2020-12-12] MEDS: METOPROLOL TART IMMED RELEASE 25 MG TABLET. PO SCH (08:21)
[2020-12-12] MEDS: DEXAMETHASONE SOD PHOS 4 MG/ML VIAL. IVP SCH (08:22)
[2020-12-12] MEDS: REMDESIVIR 100mg in NORMAL SALINE 250ML X 4 DAYS IV SCH (08:26)
[2020-12-12 10:32] VITALS: BP 132/98
[2020-12-12] MEDS ORDERED: METO50TA6 PO (13:20)
[2020-12-12] MEDS ORDERED: DEXA4TAB PO (13:20)
--- NOTE | 2020-12-12 13:25 | DISCH ---
HOME HEALTH DISCHARGE/MEDS DISCHARGE INFORMATION: Discharge Date: Dec 12, 2020 Final Diagnosis: Problems Medical Problems: (1) Dehydration Status: Acute Condition on Discharge: Stable CODE STATUS: Code Status: Full HOME HEALTH: Face to Face: I certify this patient is under my care and that I, or a nurse practitioner or physician's acute care certified nursing assistant working with me, had a face to face encounter that meets the physician face to face encounter requirements with this patient on 12/12/2020 Medical Condition(s): Other Usp For: Assess Cardiopulm Status Physical Therapy For: Evalulation/Treatment Occupational Therapy For: Evaluation/Treatment POST DISCHARGE ORDERS: Activity Instructions for Disc: Resume previous activity DIET AFTER DISCHARGE: Cardiac CERTIFICATION STATEMENT: Certification Statement: Based on the above finding, I certify that this patient is confined to the home and needs intermittent fdc care, physical therapy and/or speech therapy, or continues to need occupational therapy.~ This patient is under my care, and I have initiated the establishment of the plan of care.~ This patient will be followed by myself or a community physician who will periodically review the plan of care. DISCHARGE MEDICATIONS: Home Meds Active Scripts Dexamethasone (DEXAMETHASONE) 4 Mg Tablet, 4 TAB PO DAILY for COVID for 3 Days, #12 TAB Prov:JOYCE MCDONALD MD 12/12/20 Metoprolol Tartrate (METOPROLOL TARTRATE) 50 Mg Tablet, 1 TAB PO BID for HTN for 30 Days, #60 TAB 5 Refills Prov:JOYCE MCDONALD MD 12/12/20 Discontinued Scripts Cephalexin (KEFLEX) 500 Mg Capsule, 1 CAP PO TID for UTI for 7 Days, #21 CAP 0 Refills Prov:DAY AUSTIN DO 06/15/19 JOYCE MCDONALD MD Dec 12, 2020 13:25
--- NOTE | 2020-12-12 21:33 | DS ---
DATE OF DISCHARGE: 12/12/2020 HOSPITAL COURSE: The patient is a 69-year-old male patient who was admitted through the Emergency Room with increasing lightheadedness, loss of taste, smell and diarrhea, has had dry membranes, clinically appeared dehydrated, orthostatic. He was found to have leukopenia and his COVID-19 by PCR came back positive. His white cell count has dropped to a drew of 800 and increased up to 2.7, today was 2.5. He remained mostly asymptomatic, afebrile. Denied any complaint and a decision was made to discharge him home with home health. PHYSICAL EXAMINATION: GENERAL: When I examined him this afternoon, he looked well and was clearly in no apparent respiratory distress. No pallor, jaundice, cyanosis or thyromegaly. No jugular venous distention. No lower limb edema. VITAL SIGNS: Heart rate was 74, blood pressure is 132/98, temperature 96.9, respiratory rate 20 and oxygen saturation was 96%. The rest of clinical exam stable, has not really changed. His intake was 2200, output was 200. LABORATORY DATA: His lab work this morning showed a white cell count 2500, hemoglobin 14.5, hematocrit 41.6, MCV 98 and platelet count of 136,000. His chemistry showed a serum sodium 136, potassium 3.3, chloride 102, bicarbonate 26, anion gap of 8. BUN 14, creatinine 0.7. Estimated GFR was 111. His blood glucose 135, calcium was 7.5. Total bilirubin was 1.1. AST, ALT, alkaline phosphatase were normal. Total protein 5.8, albumin was 2.7. His TSH was almost undetectable at 0.155; however, his free T4 was slightly high at 1.57. However, his total T4 and total T3 were within normal range. DISCHARGE MEDICATIONS: The patient was discharged home to continue on dexamethasone 4 mg once a day for 3 days and then 2 mg once a day for 3 days as well as metoprolol tartrate 50 mg twice a day. FINAL DISCHARGE DIAGNOSES: 1. COVID-19 infection. 2. Dehydration, resolved. 3. Leukopenia, improved. 4. Thrombocytopenia, improved. His platelet count has risen from as low as 61,000 to 136,000. 5. Lymphocytosis, resolved. 6. Atrial fibrillation, rate controlled. 7. Hypertension, also well controlled. PLAN: The patient was discharged home with home health and also has completed a course of remdesivir. I increased his metoprolol to 50 mg twice a day. He should follow with the Cardiology team in [address]: Evelyn TID: [id number]
== END 2020-12-12 14:44 | disposition home health service (06) | DRG 179 ==
LOC: ER 09:27 → 1 SOUTH 13:13
PROVIDERS: ADMIT Hospitalist; ATTEND Hospitalist
PROC: XW033E5 Introduction of Remdesivir Anti-infective into Peripheral Vein, Percutaneous Approach, New Technology Group 5 (ICD-10-PCS; principal; 2020-12-08)
DX: U07.1 COVID-19 (principal); E86.0 Dehydration; D72.819 Decreased white blood cell count, unspecified; D69.6 Thrombocytopenia, unspecified; I48.0 Paroxysmal atrial fibrillation; I10 Essential (primary) hypertension; D72.820 Lymphocytosis (symptomatic); I95.1 Orthostatic hypotension; R19.7 Diarrhea, unspecified; K30 Functional dyspepsia; Z88.2 Allergy status to sulfonamides; Z82.5 Family history of asthma and other chronic lower respiratory diseases
CPT/HCPCS: 36415; 71045; 80048; 80053; 80061; 80076; 82947; 84436; 84439; 84443; 84480; 85007; 85025; 85027; 85379; 86140; 93005; J1100; J1160; J1650; J1815; J7050; J7120; U0003; 99285-25; J7030